=== PATIENT | male | born 1945 | race African-American/Black ===

== ENCOUNTER 2019-10-20 13:04 | Emergency (ER) | payer BC, MEDICARE ==
[~2019-10-20] VITALS: Ht 175.3 cm; Wt 108.9 kg
[~2019-10-20 13:04] MED LIST: ACETAMINOPHEN-1 EAC2 ORAL; COLACE100 MG ORAL; IBUPROFEN600 MG ORAL; MOTRIN800 MG ORAL; PERCOCET 5-3251 EACH PO; SOMA350 MG PO
[2019-10-20 14:29] VITALS: BP 124/85
[2019-10-20 14:30] VITALS: BP 124/85
--- NOTE | 2019-10-20 14:32 | NUR ---
examined by dr coyle discharged home with instruction to follow up with pmd
--- NOTE | 2019-10-20 14:38 | Emergency Room Report ---
History of Present Illness General Chief Complaint: Hypertension Source: Patient Present Illness HPI Patient is a 74-year-old male presents after increased blood pressure. He reportedly had been seeing his urologist earlier in the day and they had noticed his blood pressure be elevated. He did not take any medications. He reports having some chronic arthritis. Denies any chest discomfort or shortness of breath. Has been taking ibuprofen 800mg for arthritis regularly. Prior knee replacement surgery. This was many years ago. Patient is currently working as a maintenance provider. Denies any dizziness or lightheadedness. Denies any chest discomfort. Allergies: Coded Allergies: No Known Allergies (Unverified , 04/12/13) Patient History Past Medical History: see triage record Reviewed Nursing Documentation: PMH: Agreed; PSxH: Agreed Nursing Documentation-PMH Past Medical History: No Stated History Review of Systems All Other Systems: negative except mentioned in HPI Physical Exam Vital Signs Date Time Temp Pulse Resp B/P (MAP) Pulse Ox O2 Delivery O2 Flow Rate FiO2 10/20/19 13:09 98.2 86 16 144/79 (100) 94 Room Air Sp02 EP Interpretation: reviewed, normal General Appearance: normal inspection, well appearing, no apparent distress, alert, GCS 15, obese Head: atraumatic ENT: normal ENT inspection, hearing grossly normal, normal voice Neck: normal inspection, full range of motion, supple, no bony tend Respiratory: normal inspection, lungs clear, normal breath sounds, no respiratory distress, no retraction, no wheezing Cardiovascular #1: normal peripheral pulses, regular rate, rhythm, no edema Gastrointestinal: normal inspection, normal bowel sounds, non tender, soft, no guarding, no hernia Genitourinary: no CVA tenderness Musculoskeletal: normal inspection, back normal, decreased range of motion, normal range of motion Neurologic: alert, motor strength/tone normal, sugarcane research technician III-XII nml as tested, oriented x3, responsive, speech normal, normal inspection Psychiatric: normal inspection, judgement/insight normal, mood/affect normal Medical Decision Making Diagnostic Impression: Primary Impression: Hypertension ER Course Patient presented for high blood pressure. Differential diagnosis include was not limited to hypertensive crisis, medication induced hypertension, [place] hypertension. Patient's blood pressure was checked in both arms and was noted to be normal. Patient does not have any current symptoms. He will be discharged home and was advised to follow-up with his primary care physician for recheck. Patient was to return if worse. The patient is advised to follow up with primary care doctor in 1-2 days. Patient is advised to return if any worsening condition or if any changes in status that are concerning. This report is dictated with [employer] door core assembler software which may occasionally lead to discrepancies related to use of this software. Last Vital Signs Date Time Temp Pulse Resp B/P (MAP) Pulse Ox O2 Delivery O2 Flow Rate FiO2 10/20/19 14:30 98.0 78 16 124/85 98 Room Air Status: improved Disposition: HOME, SELF-CARE Condition: Stable Patient Instructions: Hypertension, [id number] Additional Instructions: Your blood pressure in the ED is normal. Follow up with your doctor for blood pressure recheck or if any concerns. Redd Ramos MD Oct 20, 2019 14:38
== END 2019-10-20 14:40 | disposition home or self-care (01) ==
LOC: EMR 14:38
DX: I10 Essential (primary) hypertension (principal); M19.90 Unspecified osteoarthritis, unspecified site; Z96.659 Presence of unspecified artificial knee joint
CPT/HCPCS: 99281